=== PATIENT | female | born 2000 | race African-American/Black ===

== ENCOUNTER 2023-05-31 16:27 | Emergency (ER) | payer MEDICAID, OTHER ==
[~2023-05-31] VITALS: Ht 154.9 cm; Wt 61.0 kg
[2023-05-31 16:36] VITALS: BP 125/88; PULSE 96; RESP 20; TEMP 97.7; O2SAT 98
[2023-05-31] MEDS ORDERED: LIDOCAINE HCL/PF 1% 10 MG/ML 5ML VIAL INFIL ONE (20:00)
[2023-05-31] MEDS ORDERED: BACITRACIN ZINC OINT UDPKT TOP ONE (20:00)
[2023-05-31 20:27] LABS: CLARITY URINE TURBID (CLEAR); COLOR URINE YELLOW (YELLOW); GLUCOSE URINE NEGATIVE (NEGATIVE); KETONES URINE NEGATIVE (NEGATIVE); LEUKOCYTE ESTERASE URINE NEGATIVE (NEGATIVE); NITRITE URINE NEGATIVE (NEGATIVE); OCCULT BLOOD URINE TRACE (NEGATIVE); PH URINE 7.5 (4.5-8.0); PROTEIN URINE NEGATIVE (NEGATIVE); SPECIFIC GRAVITY URINE 1.016 (1.005-1.030)
[2023-05-31 20:42] LABS: AMORPHOUS SEDIMENT URINE 2+ /lpf; BACTERIA URINE 2+; RBC URINE 0-2 /hpf (0-2); SQUAMOUS EPITHELIAL CELL URINE FEW /lpf (RARE/1+); WBC URINE 0-2 /hpf (0-2)
== END 2023-05-31 21:12 | disposition home or self-care (01) ==
LOC: ER 16:27
DX: N75.0 Cyst of Bartholin's gland (principal); Z88.0 Allergy status to penicillin; Z88.6 Allergy status to analgesic agent
CPT/HCPCS: 99284; 56420; 81003; J3490

== ENCOUNTER 2023-12-26 17:00 | Emergency (ER) | payer MEDICAID ==
[~2023-12-26] VITALS: Ht 154.9 cm; Wt 54.0 kg
[2023-12-26 17:09] VITALS: O2SAT 100
[2023-12-26] MEDS ORDERED: OFLO5DRO4 EACH EAR (18:11)
[2023-12-26] MEDS ORDERED: IBUP-2028 MT (18:11)
[2023-12-26 18:38] VITALS: BP 121/64; PULSE 97; RESP 16; TEMP 98.6
== END 2023-12-26 18:36 | disposition home or self-care (01) ==
LOC: ER 17:00
DX: H60.8X3 Other otitis externa, bilateral (principal); J06.9 Acute upper respiratory infection, unspecified; J45.909 Unspecified asthma, uncomplicated; Z88.0 Allergy status to penicillin; Z88.6 Allergy status to analgesic agent
CPT/HCPCS: 99283

== ENCOUNTER 2024-06-22 19:45 | Emergency (ER) | payer MEDICAID ==
[~2024-06-22] VITALS: Ht 154.9 cm; Wt 54.0 kg
[~2024-06-22 19:45] MED LIST: IBUP-2028 MT; OFLO5DRO4 EACH EAR
[2024-06-22 19:48] VITALS: O2SAT 98
[2024-06-22 19:51] VITALS: BP 159/84; PULSE 92; RESP 18; TEMP 36.6; O2SAT 98
[2024-06-22 20:15] LABS: CLARITY URINE CLOUDY (CLEAR); COLOR URINE YELLOW (YELLOW); GLUCOSE URINE NEGATIVE (NEGATIVE); KETONES URINE NEGATIVE (NEGATIVE); LEUKOCYTE ESTERASE URINE 1+ (NEGATIVE); NITRITE URINE NEGATIVE (NEGATIVE); OCCULT BLOOD URINE 2+ (NEGATIVE); PROTEIN URINE NEGATIVE (NEGATIVE); SPECIFIC GRAVITY URINE 1.012 (1.005-1.030)
[2024-06-22 20:24] LABS: BASOPHILS % 1.1 % (0.0-2.0); EOSINOPHILS % 5.7 % (0.0-5.0); HEMATOCRIT. 45.7 % (36.0-48.0); HEMOGLOBIN. 15.3 g/dL (12.0-16.0); LYMPHOCYTES % 15.6 % (20.0-50.0); MEAN CORPUSCULAR HEMOGLOBIN 32.3 pg (28.0-32.0); MEAN CORPUSCULAR HGB CONC 33.5 g/dL (31.0-37.0); MEAN CORPUSCULAR VOLUME 96.4 fL (81.0-99.0); MEAN PLATELET VOLUME 8.6 fl (7.4-10.4); NEUTROPHILS % 64.6 % (40.0-76.0); PLATELET 277 x1000/uL (130-400); RED BLOOD CELL COUNT 4.74 mill/uL (4.2-5.4); RED CELL DISTRIBUTION WIDTH 12.9 % (11.6-14.6)
[2024-06-22 20:32] LABS: CHLORIDE 105 mEq/L (98-107); POTASSIUM 3.8 mEq/L (3.5-5.1); SODIUM 137 mEq/L (136-145)
[2024-06-22 20:33] LABS: CALCIUM 9.7 mg/dL (8.7-10.4); CARBON DIOXIDE 26 mEq/L (21-32)
[2024-06-22 20:36] LABS: BACTERIA URINE 1+; RBC URINE 0-2 /hpf (0-2); SQUAMOUS EPITHELIAL CELL URINE 1+ /lpf (RARE/1+); TRICHOMONAS URINE FEW; YEAST URINE NONE SEEN
[2024-06-22 20:38] LABS: CREATININE 0.8 mg/dL (0.6-1.0); GLUCOSE 110 mg/dL (70-105); UREA NITROGEN BLOOD 6 mg/dL (9-23)
[2024-06-22 20:40] LABS: ALANINE AMINOTRANSFERASE 15 IU/L (10-49); ALBUMIN 4.8 g/dL (3.2-4.8); ASPARTATE AMINOTRANSFERASE 24 IU/L (<34); BILIRUBIN DIRECT 0.2 mg/dL (<=3.0); BILIRUBIN TOTAL 0.6 mg/dL (0.1-1.0); PROTEIN TOTAL 8.3 g/dL (6.0-8.3)
== END 2024-06-23 01:06 | disposition left against medical advice (07) ==
LOC: ER 19:45
DX: R10.13 Epigastric pain (principal); R11.0 Nausea; Z53.21 Procedure and treatment not carried out due to patient leaving prior to being seen by health care provider
CPT/HCPCS: 36415; 80048; 80076; 81003; 81025; 85025

== ENCOUNTER 2024-06-27 00:16 | Emergency (ER) | payer MEDICAID ==
[~2024-06-27] VITALS: Ht 154.9 cm; Wt 44.0 kg
[2024-06-27 01:11] VITALS: O2SAT 99
[2024-06-27 02:22] LABS: CLARITY URINE CLEAR (CLEAR); COLOR URINE YELLOW (YELLOW); GLUCOSE URINE NEGATIVE (NEGATIVE); KETONES URINE TRACE (NEGATIVE); LEUKOCYTE ESTERASE URINE 2+ (NEGATIVE); NITRITE URINE NEGATIVE (NEGATIVE); OCCULT BLOOD URINE NEGATIVE (NEGATIVE); PH URINE 5.5 (4.5-8.0); PROTEIN URINE NEGATIVE (NEGATIVE); SPECIFIC GRAVITY URINE 1.022 (1.005-1.030); UROBILINOGEN URINE 0.2 E.U./dL (0.2-1.0)
[2024-06-27] MEDS ORDERED: NITR-87 MT (03:21)
[2024-06-27 03:40] VITALS: BP 111/76; PULSE 71; RESP 19; TEMP 36.8; O2SAT 98
[2024-06-27 05:58] LABS: SQUAMOUS EPITHELIAL CELL URINE 1+ /lpf (RARE/1+)
[2024-06-27 06:00] LABS: BACTERIA URINE NONE SEEN; RBC URINE 0-2 /hpf (0-2)
== END 2024-06-27 03:43 | disposition home or self-care (01) ==
LOC: ER 00:24
DX: N39.0 Urinary tract infection, site not specified (principal); J45.909 Unspecified asthma, uncomplicated; Z88.0 Allergy status to penicillin
CPT/HCPCS: 81003; 81025; 99283